=== PATIENT | male | born 1995 | race Caucasian/White ===

== ENCOUNTER 2016-12-20 19:23 | Emergency (ER) | payer SELFPAY ==
[2016-12-20] MEDS ORDERED: DEXAMETHASONE SOD PHOS 4 MG/ML VIAL IM ONE (20:49)
--- NOTE | 2016-12-20 20:51 | ED Physician Documentation ---
Sore Throat/Dental Pain - HISTORIAN Historian: patient - HPI Chief Complaint: Sore Throat Additional Information: 21 yo M here for sore throat x2 days. No cough, fever but has had chills, runny nose. No diff swallowing, voice changes trismus. just hurts to swallow. No swelling. Good fluid intake. No diarrhea, n/v. All other systems reviewed and negative except per HPI. Associated Symptoms: sore throat - ROS CONST: no problems. denies: eye redness, eye itching CVS/RESP: none. denies: shortness of breath GI/: denies: nausea, vomiting MS/SKIN/LYMPH: denies: muscle aches NEURO/PSYCH: none - PAST HX Past History: none Other History: none Allergies/Adverse Reactions: Allergies Allergy/AdvReac Type Severity Reaction Status Date / Time Penicillins Allergy Unknown Verified 01/01/15 21:33 amoxicillin trihydrate Allergy Verified 01/01/15 21:33 [From Amoxil] Home Medications: Ambulatory Orders Medication Instructions Recorded NK [NK] 03/24/14 - SOCIAL HX Smoking History: less than 1 pack/day Alcohol Use: none Drug Use: none - FAMILY HX Family History: No - VITAL SIGNS Vital Signs: Vital Signs Temp Pulse Resp BP Pulse Ox 128/68 01/01/15 23:41 - REVIEWED ASSESSMENTS Nursing Assessment Reviewed: Yes Vitals Reviewed: Yes ED Results Lab/Radiology - Orders Orders: ED Orders Category Date Time Status Rapid Strep [GRP A STREP SCREEN] Stat Lab 12/20/16 19:30 Ordered Dexamethasone Sod Phosphate [Decadron] Med 12/20/16 20:49 Once 10 mg IM NOW ONE Sore throat Physical Exam - EXAM General Appearance: no acute distress, alert Head/Neck: head nml inspection, trachea midline, no lymphadenopathy. No: cervical lymphadenopathy Eyes: eyes nml inspection, PERRL Mouth/Throat: lips nml, gums nml, pharynx nml, other (posterior erythema with normal tonsils, no exudate. Uvula midline. ) Respiratory: no resp. distress, breath sounds nml CVS: reg. rate & rhythm, heart sounds nml. No: murmur Abdomen: soft, no organomegaly, normal bowel sounds, no distension Skin: warm/dry, normal color Neuro/Psych: oriented x3 Discharge Clincal Impression: Sore throat (viral) Referrals: Christina Enamorado MD [Primary Care Provider] - 12/27/16 Home Medications: Ambulatory Orders NK [NK] 03/24/14 Comments: given shot of decardon in ED. D/C with viral pharyngitis instructions. Condition: Good Disposition: 01 HOME, SELF-CARE Decision to Admit: NO Decision Time: 20:52
[2016-12-20 21:57] VITALS: BP 144/83
== END 2016-12-20 21:04 | disposition home or self-care (01) ==
LOC: ED 19:23
DX: J02.9 Acute pharyngitis, unspecified (principal); F17.210 Nicotine dependence, cigarettes, uncomplicated
CPT/HCPCS: 87070; 87880; 96372; 99282; 99283; J1100

== ENCOUNTER 2017-10-12 23:14 | Emergency (ER) | payer SELFPAY ==
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
[2017-10-13 00:14] VITALS: BP 127/77
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
== END 2017-10-12 23:59 | disposition home or self-care (01) ==
LOC: ED 23:14
DX: S01.01XA Laceration without foreign body of scalp, initial encounter (principal); S11.91XA Laceration without foreign body of unspecified part of neck, initial encounter; S06.0X9A Concussion with loss of consciousness of unspecified duration, initial encounter; X58.XXXA Exposure to other specified factors, initial encounter; Y93.9 Activity, unspecified; Y99.9 Unspecified external cause status
CPT/HCPCS: 12001; 70450; 99284

== ENCOUNTER 2018-08-19 16:15 | Emergency (ER) | payer SELFPAY ==
[2018-08-19 16:37] VITALS: BP 119/66
--- NOTE | 2018-08-19 16:49 | ED Physician Documentation ---
Sore Throat/Dental Pain - HISTORIAN Historian: patient - HPI Stated Complaint: sore throat, fever, MOORE Chief Complaint: Sore Throat Onset: hours (24) Associated Symptoms: fever (101.5), sore throat, runny nose Worsened By: nothing Further Comments: no - ROS CONST: denies: recent illness CVS/RESP: denies: chest pain, shortness of breath MS/SKIN/LYMPH: rash (itching hands) NEURO/PSYCH: headache - PAST HX Past History: none Other History: none Allergies/Adverse Reactions: Allergies Allergy/AdvReac Type Severity Reaction Status Date / Time Penicillins Allergy Unknown Verified 08/19/18 16:31 amoxicillin trihydrate Allergy Verified 08/19/18 16:31 [From Amoxil] Home Medications: Ambulatory Orders Medication Instructions Recorded NK 03/24/14 - SOCIAL HX Smoking History: non-smoker Alcohol Use: none Drug Use: none - FAMILY HX Family History: No - VITAL SIGNS Vital Signs: Vital Signs Temp Pulse Resp BP Pulse Ox 99.9 F H 79 18 119/66 98 08/19/18 16:15 08/19/18 16:15 08/19/18 16:15 08/19/18 16:15 08/19/18 16:15 - REVIEWED ASSESSMENTS Nursing Assessment Reviewed: Yes Vitals Reviewed: Yes Sore throat Physical Exam - EXAM General Appearance: no acute distress, alert Head/Neck: head nml inspection, no lymphadenopathy Eyes: PERRL, conjunctivae red. No: pain of sinuses Mouth/Throat: pharyngeal erythema Ear/Nose: nml inspection Respiratory: no resp. distress, breath sounds nml, respiratory distress Abdomen: soft, normal bowel sounds Extremities: non-tender Skin: warm/dry, normal color Neuro/Psych: oriented x3 Discharge Clincal Impression: Hand, foot and mouth disease Referrals: Christina Enamorado MD [Primary Care Provider] - 2 Days Additional Instructions: Tylenol and/or Ibuprofen as needed for fever/pain. Salt water gargles as needed for throat pain. You are highly contagious with a fever and hand/feet blisters. Condition: Stable Disposition: 01 HOME, SELF-CARE Decision to Admit: NO Date of Decison to Admit: 08/19/18 Decision Time: 16:49
== END 2018-08-19 17:01 | disposition home or self-care (01) ==
LOC: ED 16:15
DX: B08.4 Enteroviral vesicular stomatitis with exanthem (principal)
CPT/HCPCS: 87070; 87880; 99282

== ENCOUNTER 2019-02-22 01:11 | Emergency (ER) | payer SELFPAY ==
[2019-02-22] MEDS ORDERED: Lidocaine 1% 5ml 10 MG/ML VIAL IJ ONE (01:16)
[2019-02-22] MEDS ORDERED: LIDOCAINE HCL 1% MDV 200MG/20ML VIAL IM ONE (01:16)
[2019-02-22 01:24] VITALS: BP 150/87
[2019-02-22] MEDS ORDERED: DOXYCYCLINE 100 MG CAPSULE PO ONE (01:43)
[2019-02-22] MEDS ORDERED: DIPH,PERTUSS(ACELL),TET VAC/PF 0.5 ML DISP.SYRIN IM ONE (01:43)
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
== END 2019-02-22 01:56 | disposition home or self-care (01) ==
LOC: ED 01:11
DX: S61.511A Laceration without foreign body of right wrist, initial encounter (principal); W25.XXXA Contact with sharp glass, initial encounter; Y93.89 Activity, other specified; Y92.008 Other place in unspecified non-institutional (private) residence as the place of occurrence of the external cause; Z72.0 Tobacco use
CPT/HCPCS: 12001; 12004; 90471; 90715; 99283